=== PATIENT | female | born 1995 ===

== ENCOUNTER 2023-06-14 01:59 | Emergency (ER) | payer OTHER ==
[~2023-06-14] VITALS: Ht 157.5 cm; Wt 142.4 kg
[2023-06-14] MEDS ORDERED: CEPHALEXIN750 MG PO (04:14)
[2023-06-14] MEDS ORDERED: KETO10TA2 PO (04:14)
== END 2023-06-14 04:19 ==
LOC: ER 02:00
DX: S61.421A Laceration with foreign body of right hand, initial encounter (principal); W86.1XXA Exposure to industrial wiring, appliances and electrical machinery, initial encounter; Y93.89 Activity, other specified; Y92.89 Other specified places as the place of occurrence of the external cause
CPT/HCPCS: 12002; 96372; 99282; J0696